=== PATIENT | male | born 2000 | race African-American/Black ===

== ENCOUNTER 2021-10-20 13:39 | Emergency (ER) | payer MEDICAID, OTHER ==
[~2021-10-20] VITALS: Ht 177.8 cm; Wt 73.0 kg
[2021-10-20 14:09] VITALS: BP 118/78
== END 2021-10-20 16:22 | disposition left against medical advice (07) ==
LOC: ER 13:39
DX: Z53.21 Procedure and treatment not carried out due to patient leaving prior to being seen by health care provider (principal)